=== PATIENT | female | born 1995 | race American Indian/Alaskan Native ===

== ENCOUNTER 2016-11-21 12:16 | Inpatient (IN) | payer MEDICAID, SELFPAY ==
[~2016-11-21 12:16] MED LIST: fentaNYL 100 MCG/2 ML SDV IV ONE
[2016-11-21] MEDS ORDERED: Penicillin G Potassium 5,000,000 Unit Vial IV STA (12:57)
[2016-11-21] MEDS ORDERED: Lactated Ringers 500 ML IV ONE (13:00)
[2016-11-21] MEDS ORDERED: Penicillin G Potassium 5 MILLUNITS in Sodium Chloride 0.9% 100 ML IV ONE (13:00)
[2016-11-21] MEDS ORDERED: Carboprost Tromethamine 250 MCG/1 ML Amp IM PRN (13:00)
[2016-11-21] MEDS ORDERED: Lidocaine 1% 30 ML SDV INJECT PRN (13:00)
[2016-11-21] MEDS ORDERED: Lactated Ringers 1,000 ML IV SCH (13:00)
[2016-11-21] MEDS ORDERED: Methylergonovine 0.2 MG/1 ML Amp IM PRN (13:00)
[2016-11-21] MEDS ORDERED: Misoprostol 400 MCG (4 X 100 MCG TAB) RECTAL PRN (13:00)
[2016-11-21] MEDS ORDERED: Sodium Chloride 0.9% 10 ML Syringe FLUSH PRN (13:00)
[2016-11-21] MEDS ORDERED: Ondansetron 4 MG/2 ML SDV IV PRN (13:00)
[2016-11-21] MEDS ORDERED: Nalbuphine 10 MG/1 ML Vial IM PRN (13:00)
[2016-11-21] MEDS ORDERED: Acetaminophen 325 MG Tab PO PRN (13:00)
[2016-11-21] MEDS: Lactated Ringers 1,000 ML IV SCH ×2 (13:31→18:31)
[2016-11-21] MEDS ORDERED: Oxytocin/Normal Saline 30 UNIT/500 ML BAG IV SCH (15:45)
[2016-11-21] MEDS ORDERED: Penicillin G Potassium 2.5 MILLUNITS in Sodium Chloride 0.9% 100 ML IV SCH (17:00)
[2016-11-21] MEDS ORDERED: Penicillin G Potassium 5,000,000 Unit Vial IV SCH (17:00)
--- NOTE | 2016-11-21 18:27 | HP ---
CHIEF COMPLAINT: Spontaneous rupture of membranes. HISTORY OF PRESENT ILLNESS: The patient is a 21-year-old, 2, para 1-0-0 - 1, currently at 40 and 3/7th weeks of her based on a 13 week 6 day ultrasound. Reports at around 10:40 this morning she started having a large amount of leakage of fluid soaked through her underwear and then changed clothes and soaked through her pants. She was instructed to come in to Labor and Delivery for further assessment. She denies having much in the way of regular contractions nor they were very forceful or very strong. Reports good movement. No vaginal bleeding. No symptoms of severe headaches, blurry vision, chest pain, shortness of breath, or other signs of preeclampsia. Denies any other acute concerns at this time. Reports that the father of the baby is on his way in to be her support person. PAST MEDICAL HISTORY: 1. Asthma, only needs albuterol with exercise or sometimes in the winter month. 2. Ear piercings. No transfusions or IV drug use. 3. History of chickenpox as a child. 4. Left knee injury with a torn left ACL. 5. Irregular periods. Menarche at age 11 with irregular menses and flow every 3-5 days. 6. Tattoos on the right hand. 7. Left toe fractures including #3, 4, and 5. No surgery for healing. HISTORY: 1. Normal anatomy ultrasound completed. 2. Prior delivery, 12/29/2015, at 40 weeks and 4 days gestation delivered a 3105 g male with intrathecal for anesthesia, 7.5 hours of stage I, 15 minutes of stage II, 3 minutes of stage III. scores of 8 and 9, delivered at [facility] with myself as delivering physician. She named the baby Nando. LAB RESULTS: This ; blood type B positive. Antibody screen negative. Rubella immune. Syphilis serology nonreactive. Hepatitis B negative. HIV negative. Gonorrhea and chlamydia negative. Urine culture negative. TSH normal. Wet prep positive for clue cells which were treated. Glucose tolerance test of 101. Group B strep positive. PAST SURGICAL HISTORY: ACL repair x2. FAMILY HISTORY: Both parents are alive and well. Seven sisters and 2 brothers are alive. Both maternal grandparents are alive. Her grandfather has glaucoma. Both paternal grandparents are . She has a paternal aunt Abigail, who is , she had some sort of spinal disease and was unable to walk. The maternal side of the family is remarkable for multiple births and she also reports there are family members with diabetes, but not certain who. There are no relatives in the family with defect, anesthesia problems, bleeding or clotting disorders, cystic fibrosis, seizures, or heart disease. SOCIAL HISTORY: She is a former smoker and quit in February of 2016 when she discovered she was . Denies any alcohol use this . Admitted to marijuana use. The previous positive for cocaine in the urine drug test was likely a false positive. She is currently working at the [employer] in [employer]. Father of the baby is Pérez Bellamy and this will be his fifth child. No pets. She quit smoking and denies picking the habit back up during this . REVIEW OF SYSTEMS: Negative other than those things listed in the history of present illness. No recent fever, chills, nausea, vomiting, dysuria, constipation, diarrhea, other signs or symptoms of infection or other acute concerns. PHYSICAL EXAMINATION: General: Pleasant appearing 21-year-old female, HEENT: Grossly unremarkable. Heart: Regular without any obvious murmur. Lungs: Clear to auscultation bilaterally. Abdomen: Gravid, soft, nontender. Consistent with dating. Cervix is 4 cm dilated, 65% effaced, with clear fluid present. [place] is tracing contractions about every 2-3 minutes lasting 70-90 seconds palpating mild in intensity. Overall tracing is category 1. Extremities: No edema, erythema, or tenderness noted. Neurological: Reflexes are 2+ and equal. There is no clonus. Vital Signs: Temperature is 97.7, pulse 83, blood pressure 130/81, respiratory rate of 16, and O2 saturations 97% on room air. ASSESSMENT: 1. A 40 and 3/7th weeks based on a 13 week 6 day ultrasound. 2. 2, para 1-0-0-1. 3. Blood type B positive. 4. Rubella immune. 5. B strep positive. 6. Marijuana abuse. 7. Asthma. 8. Anemia of . 9. Carpal tunnel syndrome of . 10.Short interval between pregnancies. 11.Irregular periods. 12.Limited care. 13.Spontaneous rupture of membranes approximately 2 hours prior to admission. PLAN: The patient will be admitted to Labor and Delivery and penicillin initiated for prophylaxis. If her contractions do not brain picker soon, we will add Pitocin for induction/augmentation of labor and will be expecting vaginal delivery. The patient's questions have been answered and she is in agreement with the plan as outlined. [facility] /[id number] MARY JO
--- NOTE | 2016-11-21 18:38 | PCM.SN ---
- Free Text/Narrative Note: Intrathecal. Sitting position, sterile prep and drape. 1 % lidocaine w bicarb for skinwheal to L2 L3 interspace, introducer, 24 ga pencan x 1 Pos CSF, neg heme, neg parasthesia. 1:1000 pf epi wash, 20 mcg pf sufenta, 30 mcg pf fentanyl , 0.4 ml pf ns and 6 mg of 0.75% pf bupivacaine injected after CSF aspiration. Pt to L lateral side. Procedure time 1815 to 1840
[2016-11-21] MEDS ORDERED: Simethicone 80 MG Tab.Chew PO PRN (20:17)
[2016-11-21] MEDS ORDERED: Benzocaine/Menthol 20%-0.5% Spray 56 GM Canister TOP PRN (20:17)
[2016-11-22] MEDS: Ibuprofen 800 MG Tab PO PRN ×3 (00:23→20:22)
--- NOTE | 2016-11-22 03:30 | DEL ---
DATE: 11/21/2016 PREPROCEDURE DIAGNOSES: 1. A 40-3/7 weeks' intrauterine based on 13-week 6 day ultrasound .. 2. 2, para 1-0-0-1. 3. Blood type B positive. Rubella immune. Group B strep negative. 4. History of marijuana use. 5. Asthma. 6. Anemia of . 7. Carpal tunnel syndrome of . 8. Short interval between pregnancies. 9. History of irregular periods. 10.Limited care. 11.Premature rupture of membranes. 12.Urine drug screen positive on admission for THC. POSTPROCEDURE DIAGNOSES: 1. A 40-3/7 weeks' intrauterine based on 13-week 6 day ultrasound .. 2. 2, now para 2-0-0-2. 3. Blood type B positive. Rubella immune. Group B strep negative. 4. History of marijuana use. 5. Asthma. 6. Anemia of . 7. Carpal tunnel syndrome of . 8. Short interval between pregnancies. 9. History of irregular periods. 10.Limited care. 11.Premature rupture of membranes. 12.Urine drug screen positive on admission for THC. 13.Status post spontaneous vaginal delivery under intrathecal anesthesia. BRIEF HISTORY: A 21-year-old female, presented to the hospital this morning about 2 hours after spontaneous rupture of membranes at home and had been making clear fluid. No complications were noted. She was slowly progressing through stage I labor, so Pitocin was added for augmentation. She then progressed on to approximately 5 cm dilated and requested intrathecal, which was provided for anesthesia. After that, she continued to progress quite quickly through labor once complete. After 10 hours of stage I, I was called for delivery, and with 1 push, she delivered the baby without complications and without lacerations, details as below. There was second amniotic sac in tact that ruptured spontaneously just prior to delivery. With the patient in dorsal lithotomy position, she delivered a viable female over intact perineum with 1 push. 's nose and mouth were bulb suctioned. The baby dried, stimulated and placed up on mother's abdomen. Three - vessel umbilical cord was doubly clamped and then cut. Cord blood sample obtained. Placenta delivered by gentle cord traction and concomitant uterine massage. Labia, vagina, and cervix were inspected and essentially intact, no sutures were needed. ESTIMATED BLOOD LOSS: 200 mL. COMPLICATIONS: None. FINDINGS: Viable female infant, weight 3175 g, 7 pounds, 0 ounces. scores of 9 and 9. DISPOSITION: Mother and baby to stay in the room at this time. Mother plans on bottle feeding. [facility] /[id number] MTDD
[2016-11-22] MEDS: Docusate Sodium 100 MG Cap PO PRN ×2 (08:43→20:22)
[2016-11-22] MEDS: Prenatal Multivitamin with Calcium/Folic Acid/Iron Tab PO SCH (08:43)
[2016-11-22] MEDS: Ferrous Sulfate 325 MG Tab PO SCH (08:43)
--- NOTE | 2016-11-22 08:53 | PN ---
DATE: 11/22/2016 SUBJECTIVE: day #1, doing well, ambulating and tolerating regular diet. Denies any chest pain or shortness of breath. Bleeding has been minimal. Voiding without difficulties, passing flatus, has not yet had a bowel movement. Bottle feeding her baby. Denies any other concerns and reports no other specific problems. PHYSICAL EXAMINATION: Vital Signs: Temperature is 98.4, pulse 60, blood pressure 117/70, respiratory rate of 16. Heart: Regular without obvious murmur. Lungs: Clear bilaterally. Abdomen: Soft and nontender. Fundus is firm and below the umbilicus. Extremities: Trace edema. No erythema or tenderness noted. LABORATORY DATA: Hemoglobin is 10.5 actually increased from 10.3 on admission. DIAGNOSES: 1. Post vaginal delivery, day #1. 2. 2, now para 2. 3. Late care. 4. Closely-spaced pregnancies. 5. Premature rupture of membranes. 6. Anemia of . 7. Carpal tunnel syndrome of . 8. Short interval between pregnancies. 9. Irregular periods. PLAN: Anticipate normal cares and anticipate discharge home tomorrow as long as all continues to go well. Her questions have been answered. [facility] /[id number]
[2016-11-22 21:58] VITALS: BP 115/74
[2016-11-23] MEDS: Prenatal Multivitamin with Calcium/Folic Acid/Iron Tab PO SCH (08:47)
[2016-11-23] MEDS: Ibuprofen 800 MG Tab PO PRN (08:47)
[2016-11-23] MEDS: Ferrous Sulfate 325 MG Tab PO SCH (08:47)
[2016-11-23] MEDS: Docusate Sodium 100 MG Cap PO PRN (08:47)
--- NOTE | 2016-11-29 02:25 | DISCH ---
ADMITTING DIAGNOSES: 1. A 40-3/7 weeks' intrauterine based on 13-week 6-day ultrasound. 2. 2, para 1-0-0-1. 3. Blood type B positive. Rubella immune. Group B Streptococcus positive. 4. Marijuana abuse. 5. Asthma. 6. Anemia of . 7. Carpal tunnel syndrome of . 8. Short interval . 9. Irregular periods. 10.Limited care. 11.Spontaneous rupture of membranes. 12.Marijuana positive on urine drug screen at time of admission. DISCHARGE DIAGNOSES: 1. A 40-3/7 weeks' intrauterine based on 13-week 6-day ultrasound. 2. 2, para 2-0-0-2. 3. Blood type B positive. Rubella immune. Group B Streptococcus positive. 4. Marijuana abuse. 5. Asthma. 6. Anemia of . 7. Carpal tunnel syndrome of . 8. Short interval . 9. Irregular periods. 10.Limited care. 11.Spontaneous rupture of membranes. 12.Marijuana positive on urine drug screen at time of admission. 13.Status post spontaneous vaginal delivery under intrathecal anesthesia of a viable female . BRIEF HISTORY: A 21-year-old female with the above-listed diagnoses, presents to the hospital with spontaneous onset of labor. Stage I lasted about 10 hours, stage II less than 1 minute, and stage III only about 2 minutes. Once she had presented, she went through her active stages of labor quite well and had an intrathecal for anesthesia. When it came time to push, she had a spontaneous vaginal delivery without any complications and did not need any repairs. Please see admission history and physical and delivery notes for further details. HOSPITAL COURSE: Hospital course has been good. She is ambulating, tolerating regular diet. Denies any chest pain or shortness of breath. No symptoms of preeclampsia, has been bottle feeding her baby. Bleeding has been well controlled and she reports no other concerns. She is anxious to go home as soon as possible and denies any symptoms of anemia. DISCHARGE CONDITION: Good. OBJECTIVE: Vital Signs: Temperature is 98.1, pulse 70, blood pressure 115/74, respiratory rate of 16, and O2 saturations 98% on room air. Heart: Regular without any murmur. Lungs: Clear to auscultation bilaterally. Abdomen: Soft without masses. Fundus is firm and below the umbilicus. Extremities: No edema, erythema, or tenderness noted. LABORATORY: Discharge hemoglobin of 10.5, admission was 10.3. Platelets of 222. DISPOSITION: Home with family. MEDICATIONS: 1. [id number] ibuprofen and Tylenol as needed for pain. 2. Colace 100 mg twice daily as needed for constipation. 3. Iron 325 mg twice daily for anemia. FOLLOWUP: She will be seen in the office for 6-week exam, sooner if any problems or concerns arise. INSTRUCTIONS: Routine post vaginal delivery instructions were provided including reasons to call or come into the clinic, including but not limited to, fever, chills, foul-smelling drainage, discharge, increased pelvic pain or any other concerns. The patient's questions have been answered and she verbalized understanding. [facility] /[id number]
== END 2016-11-23 09:45 | disposition home or self-care (01) | DRG 775 ==
LOC: DL.OBCHECK 12:16 → DL.OB 12:20 → UNDOADMOB 12:20 → DL.OB 13:00 → OBSVTOIN 20:22 → DL.OB 20:22
PROVIDERS: ADMIT Family Medicine; ATTEND Family Medicine
PROC: 10E0XZZ Delivery of Products of Conception, External Approach (ICD-10-PCS; principal; 2016-11-21)
PROC: 00HU33Z Insertion of Infusion Device into Spinal Canal, Percutaneous Approach (ICD-10-PCS; 2016-11-21)
PROC: 3E0R3CZ (ICD-10-PCS; 2016-11-21)
DX: O42.92 Full-term premature rupture of membranes, unspecified as to length of time between rupture and onset of labor (principal); O99.324 Drug use complicating childbirth; O99.824 Streptococcus B carrier state complicating childbirth; Z3A.40 40 weeks gestation of pregnancy; Z37.0 Single live birth; Z87.891 Personal history of nicotine dependence; F12.10 Cannabis abuse, uncomplicated
CPT/HCPCS: 01967; 36415; 80305; 85027; A9270-GY; J2405; J2540; J2590; J3010; J7050; J7120

== ENCOUNTER 2017-11-01 20:36 | Emergency (ER) | payer MEDICAID, SELFPAY ==
--- NOTE | 2017-11-01 22:15 | EDM.PDOC ---
ED HPI GENERAL MEDICAL PROBLEM - General Chief Complaint: Abdominal Pain Stated Complaint: ABD PAINS [id number] Time Seen by Provider: 11/01/17 22:11 Source of Information: Reports: Patient History Limitations: Reports: No Limitations - History of Present Illness INITIAL COMMENTS - FREE TEXT/NARRATIVE: c/o Right lower abdominal pain started this am and worsening throughout the day. , [place] chills. Tonight pain after urinating. LMP first week of September, later than ususal but menses irregular after stopping Depo in November. 2 previous pregnancies. 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 Pt denies Hematologic History: Reports: Anemia - Past Surgical History 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 Surgical History: Reports: Arthroscopic Knee, Other (See Below) Social & Family History - Family History Family Medical History: Noncontributory OBGYN: Reports: , Other (See Below) Other OBGYN Family History: multiple births Endocrine/Metabolic: Reports: IDDM Other Endocrine/Metabolic Family History: possible - Tobacco Use Smoking Status *Q: Never Smoker Years of Tobacco use: 4 Packs/Tins Daily: 0.7 Used Tobacco, but Quit: No Month Tobacco Last Used: October Second Hand Smoke Exposure: No - Caffeine Use Caffeine Use: Reports: Coffee Other Caffeine Use: one cup a day - Recreational Drug Use Recreational Drug Use: No Drug Use in Last 12 Months: Yes Recreational Drug Type: Reports: Marijuana/Hashish ED ROS GENERAL - Review of Systems Review Of Systems: See Below Constitutional: Denies: Fever, Chills HEENT: Reports: No Symptoms Respiratory: Reports: No Symptoms Cardiovascular: Reports: No Symptoms Endocrine: Reports: No Symptoms GI/Abdominal: Reports: Abdominal Pain : Reports: Dysuria (one time), Irregular Menses 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: Reports: No Symptoms Skin: Reports: No Symptoms Neurological: Reports: No Symptoms ED EXAM, GI/ABD - Physical Exam Exam: See Below Exam Limited By: No Limitations General Appearance: Alert, Mild Distress Eyes: Bilateral: EOMI Ears: Normal External Exam Nose: Normal Inspection Throat/Mouth: Normal Inspection Head: Atraumatic, Normocephalic Neck: Normal Inspection, Non-Tender, Full Range of Motion Respiratory/Chest: No Respiratory Distress, Lungs Clear, Normal Breath Sounds Cardiovascular: Normal Peripheral Pulses, Regular Rate, Rhythm GI/Abdominal Exam: Normal Bowel Sounds, Soft, Tender (RLQ, suprapubic with rebound tenderness). No: Distended, Guarding Back Exam: Normal Inspection Extremities: Normal Inspection, Normal Range of Motion Course - Vital Signs Last Recorded V/S: Last Vital Signs Temp 100 F 11/01/17 23:15 Pulse 68 11/01/17 23:15 Resp 16 11/01/17 23:15 BP 111/71 11/01/17 23:15 Pulse Ox 98 11/01/17 23:15 - Orders/Labs/Meds Labs: Laboratory Tests 11/01/17 11/01/17 11/01/17 Range/Units 21:58 21:58 22:15 WBC 13.9 H (5.0-10.0) 10^3/uL RBC 4.07 L (4.2-5.4) 10^6/uL Hgb 11.3 L (12.0-16.0) g/dL Hct 32.9 L (37.0-47.0) % MCV 80.8 (80-100) fL MCH 27.8 (27.0-34.0) pg MCHC 34.3 (33.0-35.0) g/dL Plt Count 316 D (150-450) 10^3/uL Neut % (Auto) 74.1 (42.2-75.2) % Lymph % (Auto) 19.5 L (20.5-50.1) % Worth % (Auto) 5.8 (2-8) % Eos % (Auto) 0.4 L (1.0-3.0) % Baso % (Auto) 0.2 (0.0-1.0) % Sodium (135-145) mmol/L Potassium (3.6-5.0) mmol/L Chloride (101-111) mmol/L Carbon Dioxide (21.0-31.0) mmol/L Anion Gap BUN (7-18) mg/dL Creatinine (0.6-1.3) mg/dL Est Cr Clr Drug Dosing mL/min Estimated GFR (MDRD) BUN/Creatinine Ratio Glucose (74-105) mg/dL Lactic Acid (0.5-2.2) mmol/L Calcium (8.4-10.2) mg/dl Total Bilirubin (0.2-1.0) mg/dL AST (10-42) IU/L ALT (10-60) IU/L Alkaline Phosphatase (42-121) IU/L Total Protein (6.7-8.2) g/dl Albumin (3.2-5.5) g/dl Globulin Albumin/Globulin Ratio Amylase (28-100) U/L Lipase (22-51) U/L HCG, Quant (0-25) mIU/ml Beta HCG, Quant mIU/ml Urine Color Yellow (YELLOW) Urine Appearance Turbid (CLEAR) Urine pH 6.0 (5.0-9.0) Ur Specific [place] 1.025 (1.005-1.030) Urine Protein 30 H (NEGATIVE) Urine Glucose (UA) Negative (NEGATIVE) Urine Ketones >=160 H (NEGATIVE) Urine Occult Blood Moderate H (NEGATIVE) Urine Nitrite Negative (NEGATIVE) Urine Bilirubin Small H (NEGATIVE) Urine Urobilinogen 0.2 (0.2-1.0) mg/dL Ur Leukocyte Esterase Negative (NEGATIVE) Urine RBC 10-20 H /HPF Urine WBC 0-5 (0-5/HPF) /HPF Ur Epithelial Cells Many H /HPF Urine Bacteria Many H (0-FEW/HPF) /HPF Urine Mucus Moderate H /LPF Urinalysis Comment Urine HCG, Qual Positive 11/01/17 11/01/17 11/01/17 Range/Units 22:15 22:15 22:15 WBC (5.0-10.0) 10^3/uL RBC (4.2-5.4) 10^6/uL Hgb (12.0-16.0) g/dL Hct (37.0-47.0) % MCV (80-100) fL MCH (27.0-34.0) pg MCHC (33.0-35.0) g/dL Plt Count (150-450) 10^3/uL Neut % (Auto) (42.2-75.2) % Lymph % (Auto) (20.5-50.1) % Worth % (Auto) (2-8) % Eos % (Auto) (1.0-3.0) % Baso % (Auto) (0.0-1.0) % Sodium 134 L D (135-145) mmol/L Potassium 3.1 L (3.6-5.0) mmol/L Chloride 105 (101-111) mmol/L Carbon Dioxide 19.0 L (21.0-31.0) mmol/L Anion Gap 13.1 BUN 6 L (7-18) mg/dL Creatinine 0.4 L (0.6-1.3) mg/dL Est Cr Clr Drug Dosing 206.52 mL/min Estimated GFR (MDRD) > 60 BUN/Creatinine Ratio 15.00 Glucose 116 H (74-105) mg/dL Lactic Acid 2.1 (0.5-2.2) mmol/L Calcium 8.9 (8.4-10.2) mg/dl Total Bilirubin 0.8 (0.2-1.0) mg/dL AST 28 (10-42) IU/L ALT 13 (10-60) IU/L Alkaline Phosphatase 44 (42-121) IU/L Total Protein 6.7 (6.7-8.2) g/dl Albumin 3.8 (3.2-5.5) g/dl Globulin 2.9 Albumin/Globulin Ratio 1.31 Amylase 42 (28-100) U/L Lipase 13 L (22-51) U/L HCG, Quant > 1324 H (0-25) mIU/ml Beta HCG, Quant 811674 mIU/ml Urine Color (YELLOW) Urine Appearance (CLEAR) Urine pH (5.0-9.0) Ur Specific [place] (1.005-1.030) Urine Protein (NEGATIVE) Urine Glucose (UA) (NEGATIVE) Urine Ketones (NEGATIVE) Urine Occult Blood (NEGATIVE) Urine Nitrite (NEGATIVE) Urine Bilirubin (NEGATIVE) Urine Urobilinogen (0.2-1.0) mg/dL Ur Leukocyte Esterase (NEGATIVE) Urine RBC /HPF Urine WBC (0-5/HPF) /HPF Ur Epithelial Cells /HPF Urine Bacteria (0-FEW/HPF) /HPF Urine Mucus /LPF Urinalysis Comment Urine HCG, Qual - Re-Assessments/Exams Free Text/Narrative Re-Assessment/Exam: Ultrasound unavailable. Tx to [facility] for pelvic ultrasound. Dr. Farmer aware, accepting to review on arrival and after ultrasound. Patient aware if studiy negative she will need a ride home. Departure - Departure Time of Disposition: 23:35 Disposition: DC/Tfer to Acute Hospital 02 Condition: Good Clinical Impression: First trimester Abdominal pain Qualifiers: Abdominal location: right lower quadrant Qualified Code(s): R10.31 - Right lower quadrant pain - Discharge Information Instructions: Abdominal Pain, Adult, [id number] Forms: ED Department Discharge
[2017-11-01 22:41] LABS: CHLORIDE,CL 105 mmol/L (101-111); SODIUM,NA 134 mmol/L (135-145)
[2017-11-01 23:16] VITALS: BP 111/71
== END 2017-11-01 23:37 ==
LOC: DL.ED 20:36
DX: O99.89 Other specified diseases and conditions complicating pregnancy, childbirth and the puerperium (principal); R10.31 Right lower quadrant pain
CPT/HCPCS: 36415; 80053; 81001; 81025; 82150; 83605; 83690; 84702; 85025; 99284

== ENCOUNTER 2018-01-15 22:14 | Emergency (ER) | payer MEDICAID ==
[2018-01-15] MEDS ORDERED: Acetaminophen/HYDROcodone 325-10 MG Tab PO ONE (22:15)
[2018-01-15] MEDS ORDERED: Ibuprofen 600 MG Tab PO ONE (22:15)
[2018-01-15 22:28] VITALS: BP 138/84
--- NOTE | 2018-01-15 23:40 | EDM.PDOC ---
ED HPI GENERAL MEDICAL PROBLEM - General Chief Complaint: General Stated Complaint: PAIN IN MOUTH [id number] Time Seen by Provider: 01/15/18 23:00 Source of Information: Reports: Patient History Limitations: Reports: No Limitations - History of Present Illness INITIAL COMMENTS - FREE TEXT/NARRATIVE: bilaterla lower dental pain. [place] teeth top and bottom removed on 01/03. Increasing pain since . Stated tried to get in to see dental surgeon but unable to get to GF. Last took ibuprofen at 3 carli. 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 Pt denies Hematologic History: Reports: Anemia - Past Surgical History 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 Surgical History: Reports: Arthroscopic Knee, Other (See Below) Social & Family History - Family History Family Medical History: Noncontributory OBGYN: Reports: , Other (See Below) Other OBGYN Family History: multiple births Endocrine/Metabolic: Reports: IDDM Other Endocrine/Metabolic Family History: possible - Tobacco Use Smoking Status *Q: Unknown Ever Smoked Years of Tobacco use: 4 Packs/Tins Daily: 0.7 Used Tobacco, but Quit: No Month/Year Tobacco Last Used: October Second Hand Smoke Exposure: No - Caffeine Use Caffeine Use: Reports: Coffee Other Caffeine Use: one cup a day - Recreational Drug Use Recreational Drug Use: No Drug Use in Last 12 Months: Yes Recreational Drug Type: Reports: Marijuana/Hashish ED ROS GENERAL - Review of Systems Review Of Systems: See Below Constitutional: Reports: Chills HEENT: Reports: Dental Pain (lower back), Ear Pain (from teeth) Respiratory: Reports: No Symptoms Cardiovascular: Reports: No Symptoms GI/Abdominal: Reports: No Symptoms 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: Reports: No Symptoms Skin: Reports: No Symptoms ED EXAM, GENERAL - Physical Exam Exam: See Below Exam Limited By: No Limitations General Appearance: Alert, Mild Distress Eye Exam: Bilateral Eye: EOMI Ear Exam: Bilateral Ear: TM normal Nose: Normal Inspection Throat/Mouth: Other (mild swelling bilateral lower posterior gums. no active bleeding) Neck: Lymphadenopathy (L), Lymphadenopathy (R) Respiratory/Chest: No Respiratory Distress, Normal Breath Sounds Cardiovascular: Normal Peripheral Pulses, Regular Rate, Rhythm Back Exam: Normal Inspection Neurological: Alert, Oriented, Normal Cognition Psychiatric: Normal Affect, Normal Mood Skin Exam: Warm, Dry, Intact, Normal Color Course - Vital Signs Last Recorded V/S: Last Vital Signs Temp 97.7 F 01/15/18 22:26 Pulse 68 01/15/18 22:26 Resp 18 01/15/18 22:26 BP 138/84 01/15/18 22:26 Pulse Ox 100 01/15/18 22:26 - Orders/Labs/Meds Meds: Medications Discontinued Medications Generic Name Dose Route Start Last Admin Trade Name Estela PRN Reason Stop Dose Admin Hydrocodone Bitart/Acetaminophen Confirm 01/15/18 23:44 [place] 325-10 Mg Administered 01/15/18 23:45 Dose 2 tab .ROUTE .STK-MED ONE Ibuprofen Confirm 01/15/18 23:44 Motrin Administered 01/15/18 23:45 Dose 1,200 mg .ROUTE .STK-MED ONE Departure - Departure Time of Disposition: 23:34 Disposition: Home, Self-Care 01 Condition: Good Clinical Impression: Pain, dental, Dry socket - Discharge Information Instructions: Dental Dry Socket, [id number] Referrals: Sharda Perdomo MD [Primary Care Provider] - Forms: ED Department Discharge Additional Instructions: keflex 500mg one 4 times daily 328 Ibuprofen 600mg one every 6 hours as needed #20 Hydrocodone 10/325 one every 6 hours as needed for severe pain follow up with dentist in am
[2018-01-15] MEDS ORDERED: Ibuprofen 600 MG Tab ONE (23:44)
[2018-01-15] MEDS ORDERED: Acetaminophen/HYDROcodone 325-10 MG Tab ONE (23:44)
== END 2018-01-15 23:49 | disposition home or self-care (01) ==
LOC: DL.ED 22:14
DX: M27.3 Alveolitis of jaws (principal)
CPT/HCPCS: 99282; A9270

== ENCOUNTER 2018-09-24 21:37 | Emergency (ER) | payer MEDICAID ==
[2018-09-24 21:46] VITALS: BP 107/69
[2018-09-24] MEDS ORDERED: Penicillin G Benzathine/Procaine 600-600 1.2 Millunits/2 ML Syringe IM ONE (21:56)
--- NOTE | 2018-09-24 22:04 | EDM.PDOC ---
ED HPI GENERAL MEDICAL PROBLEM - General Chief Complaint: ENT Problem Stated Complaint: HARD TO BREATHE AND SWALLOW [id number] Time Seen by Provider: 09/24/18 21:45 Source of Information: Reports: Patient History Limitations: Reports: No Limitations - History of Present Illness INITIAL COMMENTS - FREE TEXT/NARRATIVE: This 22 yo female patient reports to the ED with a sore throat, cough and lost her voice today. The patient reports she has been taking cough medication with little to no symptom relief. The patient also reports her left ear has been bothering her. Duration: Day(s):, Constant, Getting Worse Location: Reports: Face, Neck Quality: Reports: Ache, Sharp, Stabbing Severity: Moderate Improves with: Reports: None Worsens with: Reports: None Associated Symptoms: Reports: No Other Symptoms Throat Pain Score (Numeric/FACES): 10 - Related Data Allergies Allergy/AdvReac Type Severity Reaction Status Date / Time No Known Allergies Allergy Verified 09/24/18 21:43 Home Meds: Home Meds Acetaminophen [Tylenol] 650 mg PO Q4H PRN #0 tablet 12/31/15 [Rx] Ferrous Sulfate 325 mg PO DAILY 05/23/18 [History] Pnv No.122/Iron/Folic Acid [ Multi Tablet] 1 tab PO DAILY 05/23/18 [ History] Ibuprofen [Motrin] 600 mg PO Q8H PRN #40 tablet 05/25/18 [Rx] Past Medical History - Past Health History Medical/Surgical History: Denies Medical/Surgical History HEENT History: Reports: None Cardiovascular History: Reports: None Respiratory History: Reports: Asthma Gastrointestinal History: Reports: None Genitourinary History: Reports: None 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: 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 History: Reports: None Neurological History: Reports: None Psychiatric History: Reports: Suicide Attempt, Other (See Below) Other Psychiatric History: per H&P, pt denies Endocrine/Metabolic History: Reports: None Hematologic History: Reports: Anemia Immunologic History: Reports: None Oncologic (Cancer) History: Reports: None Dermatologic History: Reports: None - Infectious Disease History Infectious Disease History: Reports: None - Past Surgical History Head Surgeries/Procedures: Reports: None 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 Surgical History: Reports: Arthroscopic Knee, Other (See Below) Social & Family History - Family History Family Medical History: Noncontributory OBGYN: Reports: , Other (See Below) Other OBGYN Family History: multiple births Endocrine/Metabolic: Reports: IDDM Other Endocrine/Metabolic Family History: possible - Tobacco Use Smoking Status *Q: Current Every Day Smoker Years of Tobacco use: 5 Packs/Tins Daily: 0.2 - Caffeine Use Caffeine Use: Reports: Coffee, Energy Drinks Other Caffeine Use: one cup a day - Recreational Drug Use Recreational Drug Use: No ED ROS ENT - Review of Systems Review Of Systems: ROS reveals no pertinent complaints other than HPI. ED EXAM, ENT - Physical Exam Exam: See Below Exam Limited By: No Limitations General Appearance: Alert, WD/WN, Moderate Distress Eye Exam: Bilateral Eye: EOMI, Normal Inspection, PERRL Ears: TM Bulging (left), TM Erythema (bilateral) Nose: Normal Inspection, Normal Mucousa, No Blood Mouth/Throat: Pharyngeal Erythema, Tonsillar Erythema Head: Atraumatic, Normocephalic Neck: Lymphadenopathy (L), Lymphadenopathy (R) Respiratory/Chest: No Respiratory Distress, Lungs Clear, Normal Breath Sounds, No Accessory Muscle Use, Chest Non-Tender Cardiovascular: Normal Peripheral Pulses, Regular Rate, Rhythm, No Edema, No Gallop, No JVD, No Murmur, No Rub GI/Abdominal: Normal Bowel Sounds, Soft, Non-Tender, No Organomegaly, No Distention, No Abnormal Bruit, No Mass (Female) Exam: Deferred Rectal (Female) Exam: Deferred Back: Normal Inspection, Full Range of Motion Extremities: Normal Inspection, Normal Range of Motion, Non-Tender, No Pedal Edema, Normal Capillary Refill Neurological: Alert, Oriented, CN II-XII Intact, Normal Cognition, Normal Gait, Normal Reflexes, No Motor/Sensory Deficits Psychiatric: Normal Affect, Normal Mood Skin: Warm, Dry, Intact, Normal Color, No Rash Lymphatic: No Adenopathy Course - Vital Signs Last Recorded V/S: Last Vital Signs Temp 36.6 C 09/24/18 21:44 Pulse 99 09/24/18 21:44 Resp 16 09/24/18 21:44 BP 107/69 09/24/18 21:44 Pulse Ox 115 H 09/24/18 21:44 - Orders/Labs/Meds Orders: Active Orders 24 hr Category Date Time Status Pen G Juanito/Pen G Procaine [Bicillin C-R 600/600] Med 09/24/18 21:56 Once 1.2 millunits IM ONETIME ONE Medication Orders Penicillin G Procaine/Benzathine (Bicillin C-R 600/600) 1.2 millunits IM ONETIME ONE Stop: 09/24/18 21:57 Meds: Medications Generic Name Dose Route Start Last Admin Trade Name Estela PRN Reason Stop Dose Admin Penicillin G Procaine/Benzathine 1.2 millunits 09/24/18 21:56 Bicillin C-R 600/600 IM 09/24/18 21:57 ONETIME ONE Departure - Departure Time of Disposition: 22:02 Disposition: Home, Self-Care 01 Condition: Fair Clinical Impression: Acute bacterial tonsillitis Otitis media Qualifiers: Otitis media type: suppurative Chronicity: acute Laterality: bilateral Recurrence: non-recurrent Spontaneous tympanic membrane rupture: without spontaneous rupture Qualified Code(s): H66.003 - Acute suppurative otitis media without spontaneous rupture of ear drum, bilateral - Discharge Information *PRESCRIPTION DRUG MONITORING PROGRAM REVIEWED*: Not Applicable *COPY OF PRESCRIPTION DRUG MONITORING REPORT IN PATIENT WENDY: Not Applicable Instructions: Otitis Media, Adult, [id number], Tonsillitis, [id number] Care Plan Goals: The patient was advised of the examination results during the visit. The patient was given an injection of Bicillin while in the ED. The patient was discharged with a script for Azithromycin (250 mg) #6 to take 2 by mouth on day 1 and 1 by mouth on days 2-5. If the patient has any additional symptoms or concerns, the patient should either return to the emergency department or visit her primary care facility. - My Orders Last 24 Hours: My Active Orders 09/24/18 21:56 Pen G Juanito/Pen G Procaine [Bicillin C-R 600/600] 1.2 millunits IM ONETIME ONE - Assessment/Plan Last 24 Hours: My Active Orders 09/24/18 21:56 Pen G Juanito/Pen G Procaine [Bicillin C-R 600/600] 1.2 millunits IM ONETIME ONE
== END 2018-09-24 22:16 | disposition home or self-care (01) ==
LOC: DL.ED 21:37
DX: J03.80 Acute tonsillitis due to other specified organisms (principal); B96.89 Other specified bacterial agents as the cause of diseases classified elsewhere; H66.003 Acute suppurative otitis media without spontaneous rupture of ear drum, bilateral; J45.909 Unspecified asthma, uncomplicated; F17.210 Nicotine dependence, cigarettes, uncomplicated; Z79.899 Other long term (current) drug therapy
CPT/HCPCS: 96372; 99283; J0558

== ENCOUNTER 2018-11-19 17:51 | Emergency (ER) | payer MEDICAID ==
[2018-11-19 18:19] VITALS: BP 131/87
--- NOTE | 2018-11-19 18:47 | EDM.PDOC ---
<Elenita Hightower R - Last Filed: 11/20/18 08:20> ED HPI GENERAL MEDICAL PROBLEM - General Chief Complaint: Lower Extremity Injury/Pain Stated Complaint: PAIN OIN LEFT KNEE [id number] Time Seen by Provider: 11/19/18 18:25 Source of Information: Reports: Patient, RN History Limitations: Reports: No Limitations - History of Present Illness INITIAL COMMENTS - FREE TEXT/NARRATIVE: Patient present to ED with complaints of left knee pain. She is requesting her knee be drained and have a MRI. She is having left knee pain and swelling. She had a knee injury in 2010. She had a ACL and meniscus tear that were surgically repaired. She wears a compression sleeve. She takes ibuprofen and Bengay topical cream for pain. Onset: Other (chronic knee pain from injury in 2010) Left Knee Pain Score (Numeric/FACES): 8 - Related Data Allergies Allergy/AdvReac Type Severity Reaction Status Date / Time No Known Allergies Allergy Verified 11/19/18 18:19 Home Meds: Home Meds Acetaminophen [Tylenol] 650 mg PO Q4H PRN #0 tablet 12/31/15 [Rx] Albuterol Sulfate [Albuterol Sulfate Hfa] 2 puff INH ASDIRECTED PRN 11/19/18 [ History] Ibuprofen [Motrin] 400 mg PO Q8H PRN 11/19/18 [History] Past Medical History - Past Health History Medical/Surgical History: Denies Medical/Surgical History HEENT History: Reports: None Cardiovascular History: Reports: None Respiratory History: Reports: Asthma Gastrointestinal History: Reports: None Genitourinary History: Reports: 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 History: Reports: None Neurological History: Reports: None Psychiatric History: Reports: Suicide Attempt, Other (See Below) Other Psychiatric History: per H&P, pt denies Endocrine/Metabolic History: Reports: None Hematologic History: Reports: Anemia Immunologic History: Reports: None Oncologic (Cancer) History: Reports: None Dermatologic History: Reports: None - Infectious Disease History Infectious Disease History: Reports: None - Past Surgical History Head Surgeries/Procedures: Reports: None 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 Surgical History: Reports: Arthroscopic Knee, Other (See Below) Social & Family History - Family History Family Medical History: Noncontributory OBGYN: Reports: , Other (See Below) Other OBGYN Family History: multiple births Endocrine/Metabolic: Reports: IDDM Other Endocrine/Metabolic Family History: possible - Tobacco Use Smoking Status *Q: Current Every Day Smoker Years of Tobacco use: 3 Packs/Tins Daily: 0.5 Second Hand Smoke Exposure: No - Caffeine Use Caffeine Use: Reports: Coffee, Energy Drinks, Soda, Tea Other Caffeine Use: one cup a day - Recreational Drug Use Recreational Drug Use: No ED EXAM, GENERAL - Physical Exam General Appearance: Alert, WD/WN, No Apparent Distress Head: Atraumatic, Normocephalic Respiratory/Chest: No Respiratory Distress, Lungs Clear, Normal Breath Sounds, No Accessory Muscle Use, Chest Non-Tender Cardiovascular: Normal Peripheral Pulses, Regular Rate, Rhythm, No Edema, No Gallop, No JVD, No Murmur, No Rub Peripheral Pulses: 2+: Posterior Tibial (L), Posterior Tibial (R) GI/Abdominal: Normal Bowel Sounds, Soft, Non-Tender, No Organomegaly, No Distention, No Abnormal Bruit, No Mass (Female) Exam: Deferred Rectal (Female) Exam: Deferred Extremities: Joint Swelling ( lateral and posterior left knee), Leg Pain (left knee with point of maximum pain posterior), Other (mild laxity with anterior drawer test. Pain on palpation of posterior knee. No acute deformities. ). No : Pedal Edema, Increased Warmth, Redness Neurological: Alert, Oriented, Normal Cognition, Normal Gait Psychiatric: Normal Affect, Normal Mood Skin Exam: Warm, Dry, Intact, Normal Color, No Rash, Wound/Incision (healed scars to left knee from surgury in 2010) Lymphatic: No Adenopathy Course - Vital Signs Last Recorded V/S: Last Vital Signs Temp 36.3 C 11/19/18 18:14 Pulse 90 11/19/18 18:14 Resp 16 11/19/18 18:14 BP 131/87 11/19/18 18:14 Pulse Ox 99 11/19/18 18:14 Departure - Departure Time of Disposition: 18:46 Disposition: Home, Self-Care 01 Condition: Good Clinical Impression: Chronic pain of left knee - Discharge Information Instructions: Knee Pain, Adult Referrals: Sharda Pedromo MD [Primary Care Provider] - Forms: ED Department Discharge Additional Instructions: Tylenol and/or Ibuprofen for pain Follow up with PCP for possible MRI and orthopedic appointment Return to ED if new symptoms develop or symptoms worsen. - Assessment/Plan Assessment:: chronic left knee pain Plan: Tylenol and/or Ibuprofen for pain Follow up with PCP for possible MRI and orthopedic appointment Return to ED if new symptoms develop or symptoms worsen. <Jg Abrams - Last Filed: 11/20/18 08:29> ED HPI GENERAL MEDICAL PROBLEM - History of Present Illness INITIAL COMMENTS - FREE TEXT/NARRATIVE: She denies any recent falls or direct trauma to the knee. She did slip on the ice a couple days ago which aggravated her chronic pain. Her knee is minimally more symptomatic than chronically. She has no paresthesias of the lower extremity. She is able to ambulate without difficulty. She came to the emergency department because someone told her that she needs an emergent MRI. Review of Systems - Review of Systems Review Of Systems: ROS reveals no pertinent complaints other than HPI. ED EXAM, GENERAL - Physical Exam Exam: See Below Extremities: Joint Swelling ( lateral and posterior left knee, minimal amount of best there is no erythema induration or breaks in the skin. No Miguel's cyst.) Course - Re-Assessments/Exams Free Text/Narrative Re-Assessment/Exam: 11/20/18 08:29 Really her physical exam was rather unremarkable. She has no direct blow or injury to the knee I do not feel that her chronic symptomatology warrants an acute x-ray. We do not tab knees nor do we do emergent MRIs on chronic knee pain in the emergency department. Patient is understanding of this and her questions are answered.
== END 2018-11-19 18:56 | disposition home or self-care (01) ==
LOC: DL.ED 17:51
DX: M25.562 Pain in left knee (principal); G89.29 Other chronic pain; F17.210 Nicotine dependence, cigarettes, uncomplicated; J45.909 Unspecified asthma, uncomplicated; Z79.899 Other long term (current) drug therapy
CPT/HCPCS: 99282

== ENCOUNTER 2020-10-01 18:21 | Inpatient (IN) | payer MEDICAID ==
[2020-10-01 20:04] LABS: AMPHETAMINES,URINE NEGATIVE (NEGATIVE); BARBITURATES,URINE NEGATIVE (NEGATIVE); BENZODIAZEPINE,URINE NEGATIVE (NEGATIVE); MDMA (ECSTASY), URINE NEGATIVE (NEGATIVE); METHADONE,URINE NEGATIVE (NEGATIVE); METHAMPHETAMINES,URINE POSITIVE (NEGATIVE); OPIATES,URINE NEGATIVE (NEGATIVE); OXYCODONE,URINE NEGATIVE (NEGATIVE); PHENCYCLIDINE,URINE NEGATIVE (NEGATIVE); TCA,URINE NEGATIVE (NEGATIVE)
[2020-10-01 20:17] LABS: CORONAVIRUS COVID-19 NAA NEGATIVE (NEGATIVE)
[2020-10-01] MEDS ORDERED: Misoprostol 400 MCG (4 X 100 MCG TAB) RECTAL PRN (20:55)
[2020-10-01] MEDS ORDERED: Lidocaine 1% 30 ML SDV INJECT PRN (20:55)
[2020-10-01] MEDS ORDERED: Ondansetron 4 MG/2 ML SDV IVPUSH PRN (20:55)
[2020-10-01] MEDS ORDERED: Lactated Ringers 1,000 ML IV ONE (20:55)
[2020-10-01] MEDS ORDERED: Sodium Chloride 0.9% 10 ML Syringe FLUSH PRN (20:55)
[2020-10-01] MEDS ORDERED: Methylergonovine 0.2 MG/1 ML Amp IM PRN (20:55)
[2020-10-01] MEDS ORDERED: Carboprost Tromethamine 250 MCG/1 ML Amp IM PRN (20:55)
[2020-10-01] MEDS ORDERED: Tranexamic Acid 1,000 MG in Sodium Chloride 0.9% 100 ML IV PRN (20:55)
[2020-10-01] MEDS ORDERED: Oxytocin/Normal Saline 30 UNIT/500 ML BAG IV SCH ×2 (21:00→22:15)
[2020-10-01] MEDS: Lactated Ringers 1,000 ML IV SCH ×2 (21:05→21:32)
[2020-10-01] MEDS ORDERED: EPINEPHrine 1 MG/1 ML Amp ONE (21:28)
[2020-10-01] MEDS ORDERED: fentaNYL 100 MCG/2 ML SDV ONE (21:28)
--- NOTE | 2020-10-01 21:54 | OBOUT ---
DATE: 10/01/2020 TIME: 1830 to 1850. REASON FOR NST: 1. Intrauterine at 39 weeks by 22-5/7 weeks ultrasound. 2. Gestational hypertension. 3. Contractions. 4. Positive urine drug screen for methamphetamine and THC upon admission and history of positive drug screen on 06/10 for methamphetamine, MDMA, and THC. 5. Limited care as she has only had 1 visit prior and that was at the hospital, none in the clinic. 6. G4, P3-0-0-3. NST INTERPRETATION: During this time period, heart tone baseline is approximately 135, at least two 15 x 15 beats per minute accelerations, making this strip reactive as well as reassuring. Tocometer reveals potential 3 to 4 contractions during this time. Blood pressure 141/85, recheck 140/83; heart rate is 85 to 101; temperature 97.9. ASSESSMENT: 1. Nonstress test, reactive, and reassuring. 2. Tocometer with contractions. PLAN: Please see H and P for further details. [facility] /[id number]
--- NOTE | 2020-10-01 21:57 | PCM.PRNOTE ---
- Free Text/Narrative Note: Requested to provide analgesia to full term patient in severe pain. Upon entering the room, patient is sitting on edge of bed complaining of severe abdominal/pelvic pain and discomfort. Procedure was discussed with patient including adverse outcomes and expectations. Pt consented to analgesia, SAB/IT. Pt placed into a proper sitting position. Landmarks for SAB/IT were identified and marked. Hands were washed and appropriate PPE was applied. Back was prepped with betadine x3. A sterile, transparent, fenestrated drape was applied. Excess betadine was removed. Using 3 mL of a 1% lidocaine solution, a skin wheel was placed at the L2/L3 interspace. A 24 ga (4 inch) Pencan spinal needle was inserted until positive for CSF. Negative for heme or paresthesias. Injected fentanyl 30 mcg, sufentanil 25 mcg, and 7.5 mg of a 0.75% bupivacaine solution with an epi wash. Pt was placed left lateral tilt position for approximately 20 minutes. There were zero complications or adverse outcomes. Will continue to monitor. Procedure Date & Time: 10/01/205818-8603
--- NOTE | 2020-10-01 22:27 | HP ---
PATIENT IDENTIFICATION: Rhea Herbert is a 24-year-old, G4, P3-0-0-3, intrauterine at 39 weeks by 22 and 5/7 week ultrasound who presents with contraction. HISTORY OF PRESENT ILLNESS: Contractions started earlier this morning. Increasing frequency and intensity to the point that she is crying, coming every 5 minutes, felt in the lower abdomen, radiating to the back, and getting worse over time. Not associated with any spotting or bleeding other than after vaginal exam she notes some minimal bleeding. To put this in context, she has had 1 other visit which was actually just a visit at the hospital on 06/10/2020 with an ultrasound at that time that put her at 22 and 5/7 weeks which put her at 39 weeks at this point in time. Records called for and reviewed as below and supplemented by patient's history. Labs: ABO blood type B positive, negative antibody. Rubella is immune. RPR nonreactive. Negative hepatitis B surface antigen, hepatitis C, GC chlamydia and HIV with a positive urine drug screen on 06/10/2020 for amphetamines, methamphetamines, MDMA and marijuana. Hemoglobin at that point was 11.0. On today's date labs reveal a protein-creatinine ratio of 202. White cell count 12.9, hemoglobin 10.8, and platelets of 358 with urine positive drug screen for methamphetamines and THC. COVID and rapid influenza negative. ALLERGIES: None. MEDICATIONS: 1. vitamins. 2. Albuterol inhaler, last use was yesterday. PAST MEDICAL/PAST SURGICAL HISTORY: Notable for history of asthma, UTI in the , history of substance abuse, anemia during her . PAST SURGICAL HISTORY: ACL x2 surgeries for the knee. FAMILY HISTORY: Mother without diseases. Father without diseases. Multiple births on maternal side. Unsure if there was diabetes. Denies any family history of defects, anesthesia problems, or bleeding problems. Brain aneurysm in maternal great aunt. Negative for cystic fibrosis, clotting disorder, seizures and heart disease. SOCIAL HISTORY: The patient is listed as single. Presents with Luis Manuel, father of the baby. She does smoke. She denies any alcohol use during the . She does admit to use of drugs including methamphetamine and THC. REVIEW OF SYSTEMS: Otherwise reviewed and felt to be noncontributory. She denies any headaches, visual changes, or upper abdominal pain otherwise. OBJECTIVE: Vital Signs: Blood pressure 140/83. Heart rates between 85 and 101. Temperature 97.9. Appearance: Female, appears stated age, acting appropriate. Nontoxic appearance. Breathing through her contractions, but answering questions appropriately in between. Head: Atraumatic. EOMs intact. PERRLA. No scleral icterus. No sore throat. Mucous membranes are moist. Neck: No obvious tenderness. Lungs: Clear to auscultation bilaterally. No increased work of breathing. Heart: S1, S2. Regular rate and rhythm. Abdomen: Gravid. Anuj's indeterminate. Nontender, nondistended. Bowel sounds positive. No organomegaly, pulsatile masses, or obvious hernias. No rebound, rigidity, or guarding. : Normal external female genitalia. Normal position and presentation of urethra. Vaginal exam reveals to be 4+ cm, 85% effaced, 0 to -1 station, vertex suspected. Artificial rupture of membranes done after discussion with the patient yielding copious amounts of clear fluid. Extremities: No peripheral edema. Deep tendon reflexes 2 to 3 out of 4 bilaterally and symmetric in lower extremities. Psychiatric: Mood and affect congruent. Judgment and insight intact. Skin: Without any cyanosis, clubbing, or jaundice. Labs for PIH panel currently resulted white cell count 12.9, hemoglobin 10.8, platelets 358. Urine protein-creatinine ratio of 202, pending other labs. NST is found to be reactive and reassuring. heart tone baseline around 135 range. Tocometer reveals contractions anywhere from 2 to 5 minutes apart. ASSESSMENT: 1. Intrauterine 39 weeks by 22 and 5/7 week ultrasound. 2. Gestational hypertension. 3. Contraction. 4. Positive urine drug screen 06/10 for methamphetamine, MDMA and THC, and upon admission methamphetamine and THC. 5. Limited care with only 1 other visit in the hospital as noted above on 06/10/2020. 6. GBS unknown. 7. G4, P3-0-0-3. PLAN: The patient will be admitted. Artificial rupture of membranes done as above. Patient wants an intrathecal and we will provide this at her request, and we will continue to follow clinically and closely. We will need to watch for any signs and symptoms of severe preeclampsia at this point in time. The patient is at 39 weeks, no evidence of rupture of membranes prior to AROM and afebrile at this time. [facility] /[id number] MTDCarlie
[2020-10-02] MEDS ORDERED: fentaNYL 100 MCG/2 ML SDV ITHECAL ONE (00:01)
[2020-10-02] MEDS ORDERED: EPINEPHrine 1 MG/1 ML Amp ONE (00:01)
[2020-10-02] MEDS ORDERED: Oxytocin 10 Units/1 ML SDV IM PRN (01:05)
[2020-10-02] MEDS ORDERED: Simethicone 80 MG Tab.Chew PO PRN (01:05)
[2020-10-02] MEDS ORDERED: Sodium Chloride 0.9% 10 ML Syringe FLUSH PRN (01:05)
[2020-10-02] MEDS ORDERED: Benzocaine/Menthol 20%-0.5% Spray 56 GM Canister TOP PRN (01:05)
[2020-10-02] MEDS ORDERED: Diphtheria,Pertussis(Acell),Tetanus Vaccine 0.5 ML SDV IM ONE (01:05)
[2020-10-02] MEDS ORDERED: Zolpidem 5 MG Tab PO PRN (01:05)
--- NOTE | 2020-10-02 02:17 | DEL ---
DATE: 10/02/2020 PREOPERATIVE DIAGNOSES: 1. Intrauterine at 39-1/7 weeks by 22-5/7 weeks ultrasound. 2. Gestational hypertension. 3. Active labor upon admission. 4. Positive urine drug screen, 06/10, for methamphetamine, MDMA, and THC; and upon admission, methamphetamine and THC on 10/01/2020. 5. Limited to no care. 6. Group B streptococcus unknown. 7. History of asthma. 8. G4, P3-0-0-3. POSTOPERATIVE DIAGNOSES: 1. Intrauterine 39-1/7weeks - delivered. 2. Gestational hypertension. 3. Active labor upon admission. 4. Positive urine drug screen, 06/10, for methamphetamine, MDMA, and THC; and upon admission, methamphetamine and THC on 10/01/2020. 5. Limited to no care. 6. Group B streptococcus unknown. 7. History of asthma. 8. G4, P3-0-0-3. PROCEDURES PERFORMED: On 10/01/2020, had a nonstress test, artificial rupture of membranes, and Pitocin augmentation; and on 10/02/2020, had continued Pitocin augmentation followed by spontaneous vaginal delivery. ANESTHESIA/ANALGESIA: The patient did receive an intrathecal in the first stage of labor. ESTIMATED BLOOD LOSS: 250 mL. FINDINGS: Female, scores 9 and 9, weighing 7 pounds 5 ounces (3305 g). SUMMARY OF EVENTS: The patient is a 24-year-old G4, P3-0-0-3, intrauterine at 39 weeks on date of admission, 10/01/2020, admitted in active labor with gestational hypertension, and did not have evidence of preeclampsia by labs. She underwent an NST, artificial rupture of membranes, and Pitocin augmentation; did receive an intrathecal in the first stage of labor. Early a.m. of 10/02/2020, was found to be complete. I was called to the room, donned sterile gown and gloves. The patient pushing with 1 contraction. vertex was delivered in ANGY presentation, followed by anterior posterior shoulder as well as rest of the without difficulty. Mouth and nares were suctioned. Cord was doubly clamped, cut, and was brought to team. Then, approximately 10 mL of cord blood was obtained for labs. Placenta then delivered with gentle cord traction and fundal massage within 5 minutes. Perineum, vagina, and perirectal areas were examined without any tears or lacerations other than mild abrasions, periurethral, nonbleeding, nonrepaired after discussion with the patient. Mother and infant are currently stable at the time of dictation. A section of cord was taken for drug screen. [facility] /[id number] [facility] HOSPITALCarlie
--- NOTE | 2020-10-02 07:25 | PN ---
DATE: 10/01/2020 Further review of records does reveal previous pregnancies: 1. 12/29/2015 delivered at 40 and 4/7 weeks, term male, 6 pounds 13.5 ounces, did receive an intrathecal, labor was about 7 hours 30 minutes. 2. 11/21/2016 delivered at 40 and 3/7 weeks, term female, 7 pounds, with an intrathecal, 10 hours of labor with short interval between notes substance abuse. 3. 05/23/2018, 38 and 6/7 weeks, term female, 7 pounds 2.8 ounces, intrathecal, 10-second shoulder dystocia requiring Elicia'. At current time of dictation, intrathecal is starting to be administered. We will continue to follow clinically and closely. Please see further progress notes for further details. [facility] /[id number]
--- NOTE | 2020-10-02 07:55 | PN ---
DATE: 10/01/2020 SUBJECTIVE: The patient is comfortable status post intrathecal. OBJECTIVE: heart tones 115s to 120s range, reactive. Tocometer reveals contractions anywhere from 2 to 5 minutes apart. Vaginal exam reveals to be 4+ cm, 75% to 80% effaced, 0 station, vertex suspected. Clear fluid is coming from the vaginal area. ASSESSMENT AND PLAN: Intrauterine , 39 weeks, with gestational hypertension, now status post intrathecal, with contractions slowing. With them becoming less frequent, we discussed with the patient starting on Pitocin. We will start her on Pitocin 2 milliunits, up by 2 milliunits every 30 minutes, and we will continue to follow clinically and closely at this point in time. The patient understands and agrees with the above treatment plan. [facility] /[id number] MTDD
[2020-10-02] MEDS: Prenatal Multivitamin with Calcium/Folic Acid/Iron Tab PO SCH (09:49)
[2020-10-02] MEDS: Ibuprofen 800 MG Tab PO PRN ×2 (09:49→19:27)
[2020-10-02] MEDS: Ferrous Sulfate 325 MG Tab PO SCH (09:49)
[2020-10-02] MEDS: Docusate Sodium 100 MG Cap PO PRN ×2 (09:49→19:27)
[2020-10-02] MEDS: Acetaminophen 325 MG Tab PO PRN (19:30)
[2020-10-03] MEDS: Acetaminophen 325 MG Tab PO PRN ×3 (04:07→20:12)
[2020-10-03] MEDS: Ibuprofen 800 MG Tab PO PRN ×3 (04:08→20:13)
[2020-10-03] MEDS: Prenatal Multivitamin with Calcium/Folic Acid/Iron Tab PO SCH (08:24)
[2020-10-03] MEDS: Ferrous Sulfate 325 MG Tab PO SCH (08:24)
[2020-10-03] MEDS: Docusate Sodium 100 MG Cap PO PRN (08:24)
--- NOTE | 2020-10-03 09:48 | PN ---
DATE: 10/03/2020 SUBJECTIVE: day #1, the patient reports doing well, ambulating, tolerating regular diet. No chest pain or shortness of breath. Bleeding has been well controlled. Voiding and passed a bowel movement without any difficulties. Reports that she is doing a combination of breast and bottle feeding. Denies any acute medical concerns for herself. Her daughter is currently under the custody of [facility] [employer] Librarian and baby's disposition will not be determined until Monday when they go to court. At this time, mother is anticipating staying in the hospital until tomorrow and being able to return for visitation. OBJECTIVE: Vital Signs: Temperature is 98.6, pulse 78, blood pressure 122/74, respiratory rate of 16. Heart: Regular without murmur. Lungs: Clear to auscultation bilaterally. Abdomen: Soft, nontender. Fundus is firm and below the umbilicus. Extremities: No edema, erythema, or tenderness noted. LABORATORY DATA: Admission hemoglobin was 10.8, hemoglobin this morning is 10.6, platelet count is stable at 336. PIH labs were negative with a protein-creatinine ratio of 2. Urine drug screen positive for methamphetamine and marijuana. Influenza and COVID testing were negative. ASSESSMENT: 1. Post vaginal delivery day #1, doing well. 2. Diagnosed gestational hypertension for elevated blood pressures on admission, but the patient had no previous care for additional information. 3. Positive use of methamphetamine, MDMA, and THC during this . 4. No care provided in the clinic, only 1 outpatient visit at the hospital, at which labs were obtained. 5. Group B Strep status is unknown. 6. History of asthma. 7. 4, now para 4-0-0-4. PLAN: Discussed with mother. Anticipated discharge home tomorrow when Dr. Lira returns to see her and she is on day #2. Did let the patient know that she is eligible for discharge today from a medical standpoint. However, with her baby being kept in the hospital, she will likely choose to stay until tomorrow. Her questions have been answered and she denies any additional concerns at this time. [facility] /[id number] [facility] HOSPITALCarlie
[2020-10-04] MEDS: Ferrous Sulfate 325 MG Tab PO SCH (08:43)
[2020-10-04] MEDS: Prenatal Multivitamin with Calcium/Folic Acid/Iron Tab PO SCH (08:43)
[2020-10-04] MEDS: Docusate Sodium 100 MG Cap PO PRN (08:44)
[2020-10-04] MEDS: Acetaminophen 325 MG Tab PO PRN ×2 (08:44→16:01)
[2020-10-04] MEDS: Ibuprofen 800 MG Tab PO PRN ×2 (08:44→16:02)
[2020-10-04 08:55] VITALS: BP 128/85; PULSE 83
--- NOTE | 2020-10-04 13:58 | DISCH ---
ADMITTING DIAGNOSES: 1. Intrauterine at 39 weeks by 22-5/7 week's ultrasound. 2. Gestational hypertension. 3. Contractions with active labor upon admission. 4. Urine drug screen positive on 06/10/2020, for methamphetamine, MDMA, and THC, and upon admission, methamphetamine and THC. 5. Limited to no care with only one visit at the hospital prior. 6. Group B Strep unknown. 7. History of asthma. 8. G4, P3-0-0-3. DISCHARGE DIAGNOSES: 1. Intrauterine at 39-1/7 weeks by 22-5/7 week's ultrasound - delivered. 2. Gestational hypertension. 3. Contractions with active labor upon admission. 4. Urine drug screen positive on 06/10/2020, for methamphetamine, MDMA, and THC, and upon admission, methamphetamine and THC. 5. Limited to no care with only one visit at the hospital prior. 6. Group B Strep unknown. 7. History of asthma. 8. G4, P3-0-0-3. 9. Anemia of . Hemoglobin 10.8 upon admission, down to 10.3 on 10/03/2020. PROCEDURE PERFORMED: 1. On 10/01/2020, NST, artificial rupture of membranes and Pitocin augmentation. 2. On 10/02/2020, continue Pitocin augmentation followed by spontaneous vaginal delivery per Dr. Lira. HISTORY OF PRESENT ILLNESS: Please see H and P. SUMMARY OF HOSPITAL COURSE: The patient was admitted on the above date with above diagnosis, only one visit prior and that was at the hospital. She had no labs done and an ultrasound done giving her dates as above. 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 Please see delivery note for further details. day #1, please see progress note by Dr. Ramírez. day #2, date of discharge, the patient was tolerating p.o., ambulating, urinating, passing flatus, wondering about discharge today. OBJECTIVE: Vital Signs: Temperature 98.9, heart rate 83, blood pressure 128/85, and respiratory rate 18. Lungs: Clear to auscultation bilaterally. Heart: S1, S2. Regular rate and rhythm. Abdomen: Firm uterus, -2 below umbilicus. LABORATORY DATA: Day prior to discharge, white blood cell count 11.8, hemoglobin 10.3, and platelets 336. CONDITION ON DISCHARGE COMPARED TO CONDITION ON ADMISSION: Improved. DISCHARGE INSTRUCTIONS: Diet: As tolerated. Activity: No lifting more than 20 pounds. No sit-ups or straining. Pelvic rest for the next 6 weeks with immediate return to fertility discussed. Reason to return to go to the emergency room discussed with the patient in detail including, but not limited to, temperature greater than 100.4, foul- smelling discharge, red or hot breasts, or increased vaginal bleeding. DISCHARGE MEDICATIONS: Script written by Dr. Ramírez for: 1. Ibuprofen 800 mg t.i.d. p.r.n. #30. 2. Tylenol 650 mg t.i.d. p.r.n. #30. 3. Iron 325 mg b.i.d. #60. 4. Colace 100 mg b.i.d. p.r.n. constipation #60. 5. vitamins 1 daily #30, refills for a year. FOLLOWUP: Recommend 6-week visit. She wishes to follow up here in [facility]. Asked that she call the clinic during business hours to make appointment for 6-week . In terms of her baby, Assistant Wrestling Coach has been involved. There is a note written that baby should be kept until this Monday for a court date without releasing to the mother. At current time, baby does have some issues and will need further medical evaluation and treatment. Please see baby's notes for further details. [facility] /[id number]
[2020-10-05 13:42] LABS: C.TRACHOMATIS BY TMA Negative (Negative); N.GONORRHOEAE BY TMA Negative (Negative)
== END 2020-10-04 16:30 | disposition home or self-care (01) | DRG 806 ==
LOC: DL.OBCHECK 18:21 → DL.OB 20:32 → OBSVTOIN 10-02 00:55
PROVIDERS: ADMIT Family Medicine; ATTEND Family Medicine
PROC: 10E0XZZ Delivery of Products of Conception, External Approach (ICD-10-PCS; principal; 2020-10-02)
PROC: 10907ZC Drainage of Amniotic Fluid, Therapeutic from Products of Conception, Via Natural or Artificial Opening (ICD-10-PCS; 2020-10-02)
PROC: 3E0R3BZ Introduction of Anesthetic Agent into Spinal Canal, Percutaneous Approach (ICD-10-PCS; 2020-10-02)
PROC: 00HU33Z Insertion of Infusion Device into Spinal Canal, Percutaneous Approach (ICD-10-PCS; 2020-10-02)
DX: O99.02 Anemia complicating childbirth (principal); O99.324 Drug use complicating childbirth; Z37.0 Single live birth; O13.4 Gestational [pregnancy-induced] hypertension without significant proteinuria, complicating childbirth; F15.90 Other stimulant use, unspecified, uncomplicated; F12.90 Cannabis use, unspecified, uncomplicated; D64.9 Anemia, unspecified; O99.52 Diseases of the respiratory system complicating childbirth; J45.909 Unspecified asthma, uncomplicated; Z20.822 Contact with and (suspected) exposure to COVID-19; Z3A.39 39 weeks gestation of pregnancy
CPT/HCPCS: 01967; 0240U; 36415; 59025; 59409; 80305-QW; 81003; 82565; 82570; 83615; 84112; 84156; 84450; 84460; 84520; 84550; 85027; 87491; 87591; 90471; 90715; A9270-GY; J0171; J2405; J2590; J3010; J7120

== ENCOUNTER 2024-05-21 11:03 | Emergency (ER) | payer MEDICAID ==
[2024-05-21 12:10] VITALS: BP 131/74; PULSE 64
== END 2024-05-21 13:16 | disposition left against medical advice (07) ==
LOC: DL.ED 11:03
DX: Z53.21 Procedure and treatment not carried out due to patient leaving prior to being seen by health care provider (principal)

== ENCOUNTER 2024-10-16 12:26 | Emergency (ER) | payer MEDICAID ==
[2024-10-16 13:16] VITALS: BP 106/58; PULSE 71
== END 2024-10-16 13:21 | disposition home or self-care (01) ==
LOC: DL.ED 12:26
DX: O9A.213 Injury, poisoning and certain other consequences of external causes complicating pregnancy, third trimester (principal); S83.511A Sprain of anterior cruciate ligament of right knee, initial encounter; Z79.51 Long term (current) use of inhaled steroids; Z79.899 Other long term (current) drug therapy; X50.1XXA Overexertion from prolonged static or awkward postures, initial encounter; Y92.010 Kitchen of single-family (private) house as the place of occurrence of the external cause; Z3A.34 34 weeks gestation of pregnancy
CPT/HCPCS: 99283

== ENCOUNTER 2024-11-25 00:22 | Inpatient (IN) | payer MEDICAID ==
[~2024-11-25 00:22] MED LIST changes: +Acetaminophen 325 MG Tab PO PRN; +Carboprost Tromethamine 250 MCG/1 ML Amp IM PRN; +Methylergonovine 0.2 MG/1 ML Amp IM PRN; +Ondansetron 4 MG/2 ML SDV IVPUSH PRN; +Sodium Chloride 0.9% 10 ML Syringe FLUSH PRN; +Tranexamic Acid 1,000 MG in Sodium Chloride 0.9% 100 ML IV PRN; -fentaNYL 100 MCG/2 ML SDV IV ONE; +fentaNYL 100 MCG/2 ML SDV IVPUSH PRN
[2024-11-25 00:54] LABS: HEMATOCRIT 34.6 % (37.0-47.0); MEAN CORPUSCULAR HEMOGLOBIN 26.3 pg (27.0-34.0); MEAN CORPUSCULAR HGB CONC 31.8 g/dL (33.0-35.0); MEAN CORPUSCULAR VOLUME 82.8 fL (80-100); RED BLOOD CELL COUNT 4.18 10^6/uL (4.2-5.4); WHITE BLOOD CELL COUNT,WBC 11.2 10^3/uL (5.0-10.0)
[2024-11-25] MEDS: Misoprostol 50 MCG (1/2 of 100 MCG) Tab PO SCH (01:09)
[2024-11-25] MEDS ORDERED: hydrOXYzine HCl 25 MG Tab PO PRN (01:32)
[2024-11-25] MEDS ORDERED: Nalbuphine HCl 10 MG/ 1ML Amp IM PRN (01:32)
[2024-11-25] MEDS: Lactated Ringers 1,000 ML IV SCH (05:50)
[2024-11-25] MEDS: Oxytocin/Lactated Ringers 30 UNIT/500 ML BAG IV SCH (08:13)
[2024-11-25] MEDS ORDERED: Sodium Chloride 0.9% 10 ML Syringe FLUSH PRN (10:47)
[2024-11-25] MEDS ORDERED: Tranexamic Acid 1,000 MG in Sodium Chloride 0.9% 100 ML IV PRN (10:47)
[2024-11-25] MEDS ORDERED: Carboprost Tromethamine 250 MCG/1 ML Amp IM PRN (10:47)
[2024-11-25] MEDS ORDERED: Simethicone 80 MG Tab.Chew PO PRN (10:47)
[2024-11-25] MEDS ORDERED: Misoprostol 100 MCG Tab RECTAL PRN (10:47)
[2024-11-25] MEDS ORDERED: Oxytocin 10 Units/1 ML SDV IM PRN (10:47)
[2024-11-25] MEDS: Docusate Sodium 100 MG Cap PO PRN (13:03)
[2024-11-25] MEDS: Ibuprofen 800 MG Tab PO SCH ×2 (13:03→21:03)
[2024-11-25] MEDS: Witch Hazel Medicated Pads 100/Jar TOP PRN (13:04)
[2024-11-25] MEDS: Benzocaine/Menthol 20%-0.5% Spray 78 GM Cannister TOP PRN (13:04)
[2024-11-25] MEDS: Acetaminophen 325 MG Tab PO PRN (16:14)
[2024-11-25] MEDS: Lidocaine 1% 30 ML SDV INJECT ONE (17:47)
[2024-11-25] MEDS: Acetaminophen/HYDROcodone 325-10 MG Tab PO PRN (18:58)
[2024-11-25] MEDS: Lactated Ringers 1,000 ML IV ONE (20:29)
[2024-11-26] MEDS: Prenatal Multivitamin with Calcium/Folic Acid/Iron Tab PO SCH (09:36)
[2024-11-26 13:04] VITALS: BP 115/69; PULSE 82
== END 2024-11-26 11:58 | disposition home or self-care (01) | DRG 807 ==
LOC: DL.OB 00:22 → OBSVTOIN 10:37
PROVIDERS: ADMIT Family Medicine; ATTEND Family Medicine
PROC: 10E0XZZ Delivery of Products of Conception, External Approach (ICD-10-PCS; principal; 2024-11-25)
PROC: 10907ZC Drainage of Amniotic Fluid, Therapeutic from Products of Conception, Via Natural or Artificial Opening (ICD-10-PCS; 2024-11-25)
PROC: 3E0DXGC Introduction of Other Therapeutic Substance into Mouth and Pharynx, External Approach (ICD-10-PCS; 2024-11-25)
PROC: 3E0R3BZ Introduction of Anesthetic Agent into Spinal Canal, Percutaneous Approach (ICD-10-PCS; 2024-11-25)
PROC: 00HU33Z Insertion of Infusion Device into Spinal Canal, Percutaneous Approach (ICD-10-PCS; 2024-11-25)
DX: O48.0 Post-term pregnancy (principal); Z37.0 Single live birth; O99.02 Anemia complicating childbirth; O99.52 Diseases of the respiratory system complicating childbirth; J45.909 Unspecified asthma, uncomplicated; Z3A.40 40 weeks gestation of pregnancy; O99.334 Smoking (tobacco) complicating childbirth; F17.210 Nicotine dependence, cigarettes, uncomplicated; O43.123 Velamentous insertion of umbilical cord, third trimester; Z87.440 Personal history of urinary (tract) infections
CPT/HCPCS: 36415; 51701; 59409; 85027; A9270-GY; C1729; J2590; J7120